=== PATIENT | female | born 1985 | race Caucasian/White ===

== ENCOUNTER → 2016-09-25 | Outpatient (CLI) | payer OTHER ==
[~2016-09-25] MED LIST: AMITRIPTYLINE H25 MG PO; BENTYL20 MG PO; CIPRO500 MG PO; DEXILANT60 MG PO; DOMPERIDONE PO; FLAGYL500 MG PO; KEFLEX500 MG PO; LANTUS 3 M100 UNITS1 SC; LISINOPRIL5 MG PO; NEXIUM40 MG PO; NOVOLOG PE100 UNITS/ SC; OCELLA TABLET1 EACH PO; REGLAN5 MG PO; WELCHOL625 MG PO; ZOFRAN ODT8 MG PO; ZOFRAN4 MG PO
== END | disposition home or self-care (01) ==
LOC: NUC 09-11 08:00
DX: R11.2 Nausea with vomiting, unspecified (principal)
CPT/HCPCS: 78202; 78227; A9537; J2805

== ENCOUNTER 2018-01-26 09:08 | Day surgery (SDC) | payer BC ==
[~2018-01-26] VITALS: Ht 165.1 cm; Wt 70.8 kg
[~2018-01-26 09:08] MED LIST changes: +ATIVAN1 MG PO; +CALCIUM PO; +ELAVIL25 MG PO; +ERGOCALCIF50000 UNIT PO; +IMITREX100 MG PO; +PROMETHAZINE HC25 M1 PO; +REGLAN10 MG PO; +TRESIBA FL100 UNIT/1 SC
[2018-01-26 09:46] VITALS: BP 130/83
[2018-01-26 11:55] VITALS: BP 164/97
[2018-01-26 12:51] VITALS: BP 179/101
== END 2018-01-26 12:45 | disposition home or self-care (01) ==
LOC: SDC 09:08
PROVIDERS: Internal Medicine
DX: H43.12 Vitreous hemorrhage, left eye (principal); E10.3599 Type 1 diabetes mellitus with proliferative diabetic retinopathy without macular edema, unspecified eye; E10.65 Type 1 diabetes mellitus with hyperglycemia; K22.70 Barrett's esophagus without dysplasia; E78.5 Hyperlipidemia, unspecified; E78.1 Pure hyperglyceridemia; D50.9 Iron deficiency anemia, unspecified; E55.9 Vitamin D deficiency, unspecified; Z80.0 Family history of malignant neoplasm of digestive organs; Z80.49 Family history of malignant neoplasm of other genital organs; Z80.1 Family history of malignant neoplasm of trachea, bronchus and lung; Z83.3 Family history of diabetes mellitus; Z88.8 Allergy status to other drugs, medicaments and biological substances
CPT/HCPCS: 81025; 82948; J0690; J2250; J3300